=== PATIENT | male | born 1970 | race Caucasian/White ===

== ENCOUNTER 2022-02-04 10:14 | Emergency (ER) | payer BC, SELFPAY ==
[2022-02-04 10:32] VITALS: BP 143/85; PULSE 54; RESP 18; TEMP 36.9; O2SAT 96; BMI 30.9
--- NOTE | 2022-02-04 10:51 | ED_ITS ---
HPI - URI/Sore Throat General Time Seen by Provider: 10:51 Date Seen: 02/04/22 Chief Complaint: Sore Throat Stated Complaint: Sore throat, headache, fever, diarrhea Time Seen by Provider: 02/04/22 10:50 Source: patient, RN notes reviewed and old records reviewed Mode of arrival: ambulatory Limitations: no limitations History of Present Illness HPI Narrative: Jason is a very pleasant 51-year-old gentleman with history of hypertension who comes to the emergency room for evaluation regarding cough and cold-like symptoms for 4 days. Patient had the onset of symptoms on February 01 with initial headache. He then did have coughing. His daughter had had similar type symptoms. At this time he is actually feeling better. He denies shortness of breath, chest pain, calf tenderness, history of PE. He has a very mild sore throat. His daughter has tested positive for both influenza a and COVID. He is vaccinated with for COVID with the exception of the last bivalent does. Related Data Home Medications Medication Instructions Recorded Confirmed lisinopril 20 mg tablet mg 02/04/22 paroxetine HCl 40 mg tablet mg PO 02/04/22 Allergies Allergy/AdvReac Type Severity Reaction Status Date / Time No Known Drug Allergies Allergy Verified 02/04/22 10:31 Review of Systems Status of ROS: Reports: 10 or more systems reviewed and unremarkable except as noted in History and below Const: Reports: fatigue; Denies: fever or chills Eyes: Denies: change in vision ENMT: Reports: throat pain (Mild); Denies: neck pain, throat swelling, difficulty swallowing or ear pain Cardio: Denies: shortness of breath with exertion Resp: Reports: cough; Denies: shortness of breath GI: Denies: abdominal pain, nausea, vomiting, diarrhea or difficulty swallowing Musculo: Denies: neck pain Integ/Breast: Denies: rash Neuro: Reports: headache Endo: Reports: fatigue Allergy/Immuno: Denies: throat swelling PFSH PFSH Social History Smoking Status: Never smoker Do you use any of these nicotine containing products: None Second hand tobacco smoke exposure: Yes How often do you have a drink containing alcohol: monthly or less How many standard drinks containing alcohol do you have on a typical day: 1 or 2 How often do you have six or more drinks on one occasion: Never AUDIT-C Alcohol total score: 1 Non-prescribed substance use: denies use service: No Exam Narrative: Exam Narrative: Alert and oriented. Eyes are clear. TMs bilaterally thought erythema Oral cavity with moist mucous membranes. No erythema exudate in the posterior oropharynx. Neck is supple without lymphadenopathy Heart with regular rate and rhythm and lungs are clear in all lung curiel. Moving all extremities. No calf tenderness with palpation. No lower extremity edema. Const: Vital Signs, click to edit/add: Vital Signs - 24 hr 02/04/22 10:32 Temperature 98.4 F Pulse Rate [Pulse Oximeter] 54 L Respiratory Rate 18 Blood Pressure [Ri ght Forearm] 143/85 H Pulse Oximetry 96 Oxygen Delivery Me thod Room Air Documenting provider has reviewed patient's vital signs: yes Course Vital Signs Vital signs: Initial Vital Signs Temperature 98.4 F 02/04/22 10:32 Temperature Source Temporal Artery Scan 02/04/22 10:32 Pulse Rate 54 L 02/04/22 10:32 Pulse Rhythm 02/04/22 10:32 Respiratory Rate 18 02/04/22 10:32 Blood Pressure 143/85 H 02/04/22 10:32 Blood Pressure Mean 104 02/04/22 10:32 Blood Pressure Position Sitting 02/04/22 10:32 Pulse Oximetry 96 02/04/22 10:32 Oxygen Delivery Method 02/04/22 10:32 Vital Signs Temperature 98.4 F 02/04/22 10:32 Pulse Rate 54 L 02/04/22 10:32 Respiratory Rate 18 02/04/22 10:32 Blood Pressure 143/85 H 02/04/22 10:32 Pulse Oximetry 96 02/04/22 10:32 Oxygen Delivery Method 02/04/22 10:32 Temperature 98.4 F 02/04/22 10:32 Pulse Rate 54 L 02/04/22 10:32 Respiratory Rate 18 02/04/22 10:32 Blood Pressure 143/85 H 02/04/22 10:32 Pulse Oximetry 96 02/04/22 10:32 Oxygen Delivery Method 02/04/22 10:32 MDM - URI/Sore Throat MDM Narrative Medical decision making narrative: 1. COVID-patient has tested positive for COVID. His daughter was positive for both COVID and influenza A. Certainly we could have a false negative when it comes to the influenza. His O2 saturations are 96% and with the exception of high blood pressure has no significant underlying medical history that would place him at high risk for disease progression of COVID. As it is day 5 of symptoms and he is actually feeling better I would advise against Paxlovid as I do not think that benefits would outweigh risks at this point in the course of his illness. He will need to remain mast and quarantined through SaturdayFebruary 06. There after I would ask him to mask for an additional 5 days but he does not have to quarantine as long as he is feeling better. Ibuprofen and Tylenol as needed for discomfort or fever. 2. Disposition-patient is discharged home. Would recommend rest, pushing fluids, ibuprofen or Tylenol. Return to the ER for worsening symptoms and as needed. Medical Records Attestation: I reviewed the patient's medical records. Lab Data Attestation: I reviewed the patient's lab results. Labs: Lab Results 02/04/22 Range/Units 10:51 SARS-CoV-2 (PCR) POSITIVE SARS-CoV-2 A (Negative) Influenza Type A (PCR) Negative PCR FLU A (Negative) Influenza Type B (PCR) Negative PCR FLU B (Negative) RSV (PCR) Negative PCR RSV (Negative) Discharge Plan Discharge Clinical Impression: COVID, Exposure to influenza Patient Disposition: Home, Self-Care Condition: Unchanged Additional Instructions: Recommend ibuprofen or Tylenol as needed for discomfort. Push fluids to avoid dehydration. Return or seek medical attention for chest pain, shortness of breath, worsening symptoms. Recommend no work this week. Prescriptions: No Action lisinopril 20 mg tablet Label Comments: TAKE ONE TABLET BY MOUTH ONE TIME DAILY paroxetine HCl 40 mg tablet PO Label Comments: TAKE ONE TABLET BY MOUTH EVERY DAY IN THE MORNING. Follow Up/Referrals: Gretchen Baez PA-C [Primary Care Provider] - Stand Alone Forms: [employer] Info Instructions
[2022-02-04 11:41] LABS: PCR FLU A Negative PCR FLU A (Negative); PCR FLU B Negative PCR FLU B (Negative); PCR RSV Negative PCR RSV (Negative)
[2022-02-04 11:43] LABS: SARS PCR* POSITIVE SARS-CoV-2 (Negative)
== END 2022-02-04 12:30 | disposition home or self-care (01) ==
PROVIDERS: Emergency Provider Family Medicine; PCP Physician Assistant Medical
DX: U07.1 COVID-19 (principal)
CPT/HCPCS: 87502; 87634; 87635; 99282; 99283

== ENCOUNTER 2022-11-29 04:18 | Emergency (ER) | payer BC, SELFPAY ==
[2022-11-29 04:25] VITALS: BP 154/84; PULSE 58; RESP 18; TEMP 36.8; O2SAT 99; BMI 28.2
--- NOTE | 2022-11-29 04:48 | ED_ITS ---
HPI - General Adult General Chief complaint: Animal Bite Stated complaint: cat bite Time Seen by Provider: 11/29/22 04:28 Source: patient and family Mode of arrival: ambulatory Limitations: no limitations History of Present Illness HPI narrative: 52-year-old male presents the emergency department with concerns for cat bite. CT had a seizure, which is an ongoing problem. Because the CT was quite soiled, they attempted to bathe a CT in what sounds like a postictal state. The cat became agitated and bit the patient on the left wrist. Initially had some bleeding but applied pressure and the bleeding has stopped. He does not use any anticoagulants. No difficulty moving the hand. No numbness or tingling. Worried about possible infection. Bite happened around an hour from the time of arrival. Has been feeling well otherwise, no recent illness. 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 It sounds as though this required operative closure and repair of the radial artery but there have been no long-term vascular or neurological complications since. No other areas of injury or concern today. He wash the wound well with soap and water and rubbing alcohol prior to presentation. Last Td2017 Past medical history notable for hypertension and anxiety. Home meds are lisinopril metoprolol and Paxil. Nonsmoker. ROS notable for no other generalized, skin, musculoskeletal or neurological changes Related Data Home Medications Medication Instructions Recorded Confirmed lisinopril 20 mg tablet 20 mg PO DAILY 02/04/22 11/29/22 paroxetine HCl 40 mg tablet 40 mg PO DAILY 02/04/22 11/29/22 metoprolol succinate 100 mg 100 mg PO DAILY 11/29/22 11/29/22 tablet,extended release 24 hr Allergies Allergy/AdvReac Type Severity Reaction Status Date / Time No Known Drug Allergies Allergy Verified 11/29/22 04:27 [facility] Medical History Hypertension ?I10 - Essential (primary) hypertension (ICD-10) Social History Smoking Status: Never smoker Do you use any of these nicotine containing products: None Second hand tobacco smoke exposure: Yes How often do you have a drink containing alcohol: monthly or less How many standard drinks containing alcohol do you have on a typical day: 1 or 2 How often do you have six or more drinks on one occasion: Never AUDIT-C Alcohol total score: 1 Non-prescribed substance use: denies use service: No Exam Const: Vital Signs, click to edit/add: Vital Signs - 24 hr 11/29/22 04:25 Temperature 98.2 F Pulse Rate [Right Pulse Oximeter] 58 L Respiratory Rate 18 Blood Pressure [Ri ght Upper Arm] 154/84 H Pulse Oximetry 99 Oxygen Delivery Me thod Room Air Documenting provider has reviewed patient's vital signs: yes Common normals: no apparent distress General appearance: cooperative and well kempt HENMT: Common normals: normocephalic and head/scalp atraumatic Head and scalp: normocephalic and atraumatic Eye: General eye: normal appearance of both eyes Resp: Common normals: normal respiratory effort Effort & inspection: able to speak in complete sentences Cardio: Common normals: regular rate and regular rhythm Rate: regular rate Rhythm: regular rhythm Other: Palpated via radial pulse. Extremity: Other: Elbow wrist and hand with no movement abnormalities. Normal range of motion, normal strength, no movement deficits. There is a 4 cm diagonal superficial laceration on the palmar aspect of the left wrist. No active bleeding. Only about 2 cm of the laceration are down to the dermis, the other 2 cm are just into the epidermis. No signs of foreign body. No connective tissue, tendon, blood vessel or nerve structures are visible. Gapes 3 mm with movement only. Neuro: Speech: speech normal Motor exam: strength 5/5 throughout, no tremor noted and no movement abnormalities noted Psych: Appearance: well kempt Activity/motor behavior: appropriate eye contact Insight: insight good Judgement: judgment good Skin: Narrative: Laceration as above, hemostatic. Gapes less than 3 mm, reapproximates easily with counter traction. Course Course ED Course: Wrist examined, no signs of neurovascular injury. No signs of foreign body. Rabies shot not needed as CT does have vaccinations status. Tdap up-to-date as well. Lesion is quite superficial, would not benefit from closure. Gentle countertraction used to reapproximate edges, covered in antibiotic ointment and a large Band-Aid. Counseled that more aggressive closure may increase the risk of infection. Even though the lesion is fairly superficial, because it is caused by an animal bite, I do recommend antibiotics. Augmentin 875 twice daily for 7 days recommended. He will fill this from the vending machine in the lobby and start right away. Counseled on wound care. Will change dressing daily. Extra supplies provided. Apply antibiotic ointment and change large Band-Aid whenever it becomes wet, soiled or at least every 24 hours. Unfortunately, risk of infection is high, alarm symptoms reviewed that would warrant repeat ED presentation and presentation for IV antibiotics. He verbalizes understanding and agreement. He is cleared to return to all work duties. Vital Signs Vital signs: Initial Vital Signs Temperature 98.2 F 11/29/22 04:25 Temperature Source Temporal Artery Scan 11/29/22 04:25 Pulse Rate 58 L 11/29/22 04:25 Respiratory Rate 18 11/29/22 04:25 Blood Pressure 154/84 H 11/29/22 04:25 Blood Pressure Mean 107 H 11/29/22 04:25 Blood Pressure Position Sitting 11/29/22 04:25 Pulse Oximetry 99 11/29/22 04:25 Oxygen Delivery Method Room Air 11/29/22 04:25 Vital Signs Temperature 98.2 F 11/29/22 04:25 Pulse Rate 58 L 11/29/22 04:25 Respiratory Rate 18 11/29/22 04:25 Blood Pressure 154/84 H 11/29/22 04:25 Pulse Oximetry 99 11/29/22 04:25 Oxygen Delivery Method Room Air 11/29/22 04:25 Temperature 98.2 F 11/29/22 04:25 Pulse Rate 58 L 11/29/22 04:25 Respiratory Rate 18 11/29/22 04:25 Blood Pressure 154/84 H 11/29/22 04:25 Pulse Oximetry 99 11/29/22 04:25 Oxygen Delivery Method Room Air 11/29/22 04:25 Discharge Plan Discharge Clinical Impression: Cat bite Patient Disposition: Home w/ Parent or Adult Condition: Stable Instructions: Animal Bite (ED) Additional Instructions: As we discussed, animal bites have a very high risk of infection. Since the cut is not very deep and does not seem to affect any of the deeper nerve, tendon or blood vessel structures, I do not recommend that we close the wound. This would actually increase the risk of infection if we were to do so. I have covered it with antibiotic ointment and a Band-Aid. Try to keep this dry and clean. Change the dressing and replace with new antibiotic ointment and a large Band- Aid at least once daily or sooner as needed if it becomes wet or soiled. I have placed you on an antibiotic, Augmentin. This will reduce her chance of infection. Take this 2 times daily for the next 7 days. He will have extra tablets based on the PACk size from our vending machine. You do not need to take the full 10 day course. Sometimes, IV antibiotics are needed. Typically if you start antibiotics soon enough, this is not the case. If you start noticing increased redness, severe swelling, difficulty using the hand or severe bleeding, please come back to the emergency department. Light bleeding may be o herminia, try applying pressure for about 5 minutes and seeing if the bleeding stops. You may continue taking all of your typical medications with no changes. It is okay to use Tylenol and/or ibuprofen as needed for any mild discomfort. Your last tetanus shot was in 2018 and does not need to be updated for another 5 years. Activity Level: No Restrictions Discharge Diet: Regular Prescriptions: No Action lisinopril 20 mg tablet 20 mg PO DAILY Patient Comments: TAKE ONE TABLET BY MOUTH ONE TIME DAILY paroxetine HCl 40 mg tablet 40 mg PO DAILY Patient Comments: TAKE ONE TABLET BY MOUTH EVERY DAY IN THE MORNING. metoprolol succinate 100 mg tablet extended release 24 hr 100 mg PO DAILY Follow Up/Referrals: Gretchen Baez PA-C [Primary Care Provider] - Stand Alone Forms: [employer] Info Instructions
[2022-11-29 05:00] VITALS: BP 145/74; PULSE 61; RESP 18; TEMP 36.8; O2SAT 99
== END 2022-11-29 05:00 | disposition home or self-care (01) ==
PROVIDERS: Emergency Provider Family Medicine; PCP Physician Assistant Medical
DX: S61.552A Open bite of left wrist, initial encounter (principal); W55.01XA Bitten by cat, initial encounter
CPT/HCPCS: 99283